=== PATIENT | female | born 1980 | race Caucasian/White ===

== ENCOUNTER 2020-05-09 04:59 | Inpatient (IN) | payer BC ==
[~2020-05-09] VITALS: Ht 167.6 cm; Wt 106.8 kg
[2020-05-09] MEDS ORDERED: NEWBORN KIT ONE (05:06)
[2020-05-09] MEDS ORDERED: PREN1TAB62 PO (05:14)
[2020-05-09 05:15] VITALS: BP 134/73
[2020-05-09] MEDS ORDERED: SODIUM CITRATE/CITRIC ACID 30 ML UDC PO ONE (05:30)
[2020-05-09 05:57] LABS: BASOPHILS % (AUTO) 0 % (0-1); EOSINOPHILS % (AUTO) 1 % (1-7); LYMPHOCYTES % (AUTO) 23 % (22-44); MEAN CORPUSCULAR HGB CONC 32.8 g/dL (32.4-35.8); MEAN PLATELET VOLUME 9.6 fL (7.4-10.4); MONOCYTES % (AUTO) 8 % (2-9); NEUTROPHILS % (AUTO) 68 % (42-75); PLATELET COUNT 171 x10^3/uL (130-400); RED BLOOD COUNT 4.49 x10^6/uL (3.82-5.3); RED CELL DISTRIBUTION WIDTH 17.2 % (9.6-15.2)
[2020-05-09] MEDS ORDERED: METOCLOPRAMIDE 5 MG/ML, 2ML IV ONE (06:00)
[2020-05-09] MEDS ORDERED: LACTATED RINGERS 1,000 ML IVBOLUS ONE (06:00)
[2020-05-09] MEDS: LACTATED RINGERS 1,000 ML IV SCH ×6 (06:21→22:00)
[2020-05-09 06:22] LABS: MD SCAN
[2020-05-09] MEDS ORDERED: OXYTOCIN 30U/ 0.9% NaCL 500ML 500 ML ONE (06:22)
[2020-05-09] MEDS ORDERED: METOCLOPRAMIDE 5 MG/ML, 2ML ONE (06:22)
[2020-05-09] MEDS ORDERED: SODIUM CITRATE/CITRIC ACID 15 ML UDC ONE (06:22)
[2020-05-09] MEDS ORDERED: HYDROcodone/APAP 7.5-325MG/15ML UDC PO PRN (07:30)
[2020-05-09] MEDS ORDERED: METOCLOPRAMIDE 5 MG/ML, 2ML IVPush PRN (07:30)
[2020-05-09] MEDS ORDERED: MEPERIDINE/PF 25MG/0.5ML IVPush PRN (07:30)
[2020-05-09] MEDS ORDERED: FENTANYL PF 100 MCG/2ML IV PRN (07:30)
[2020-05-09] MEDS ORDERED: ACETAMINOPHEN 325 MG TABLET PO PRN ×2 (07:30→08:00)
[2020-05-09] MEDS ORDERED: EPHEDRINE 50 MG/ML, 1ML IVPush PRN (07:30)
[2020-05-09] MEDS ORDERED: ONDANSETRON 2MG/ML, 2ML IVPush PRN (07:30)
[2020-05-09] MEDS ORDERED: morphine SULFATE 10 MG/ML, 1ML IVPush PRN (07:30)
[2020-05-09] MEDS ORDERED: FENTANYL PF 100 MCG/2ML ONE (07:33)
[2020-05-09] MEDS ORDERED: EPHEDRINE 50 MG/ML, 1ML ONE ×2 (07:33→08:39)
[2020-05-09] MEDS ORDERED: EPINEPHRINE 1 MG/ML, 1ML ONE (07:33)
[2020-05-09] MEDS ORDERED: CEFAZOLIN 1,000 MG ONE (07:33)
[2020-05-09] MEDS ORDERED: OXYTOCIN 10 UNITS/ML, 1ML ONE (07:33)
[2020-05-09] MEDS ORDERED: morphine SULFATE 10 MG/ML, 1ML IM PRN (08:00)
[2020-05-09] MEDS ORDERED: CARBOPROST TROMETHAMINE 250 MCG/ML, 1ML IM PRN (08:00)
[2020-05-09] MEDS ORDERED: OXYcodone IR 5MG TABLET PO PRN (08:00)
[2020-05-09] MEDS ORDERED: DIPH,PERTUSS(ACELL),TET VAC/PF NC IM-VACC PRN (08:00)
[2020-05-09] MEDS ORDERED: ONDANSETRON 2MG/ML, 2ML IV PRN (08:00)
[2020-05-09] MEDS ORDERED: METHYLERGONOVINE 0.2 MG/ML IM PRN (08:00)
[2020-05-09] MEDS: OXYTOCIN 30U/ 0.9% NaCL 500ML 500 ML IV SCH ×2 (08:00→19:00)
[2020-05-09] MEDS ORDERED: MISOPROSTOL 200 MCG TABLET PR PRN (08:00)
[2020-05-09] MEDS ORDERED: OXYcodone/APAP 5/325MG TABLET PO PRN (08:00)
[2020-05-09] MEDS: KETOROLAC 30 MG/1 ML IV SCH ×3 (08:00→20:52)
[2020-05-09] MEDS: PRENATAL VIT/IRON/FA 1 EACH TABLET PO SCH (09:00)
[2020-05-09 11:30] VITALS: BP 125/75
[2020-05-09 15:00] VITALS: BP 122/72
[2020-05-09 16:19] LABS: BASOPHILS % (AUTO) 0 % (0-1); EOSINOPHILS % (AUTO) 0 % (1-7); LYMPHOCYTES % (AUTO) 13 % (22-44); MEAN CORPUSCULAR HEMOGLOBIN 27.8 pg (27.0-34.8); MEAN CORPUSCULAR HGB CONC 32.8 g/dL (32.4-35.8); MEAN PLATELET VOLUME 9.1 fL (7.4-10.4); MONOCYTES % (AUTO) 6 % (2-9); NEUTROPHILS % (AUTO) 81 % (42-75); PLATELET COUNT 155 x10^3/uL (130-400); RED BLOOD COUNT 4.22 x10^6/uL (3.82-5.3); RED CELL DISTRIBUTION WIDTH 17.1 % (9.6-15.2)
[2020-05-09 16:28] LABS: MD NO
[2020-05-09] MEDS: SIMETHICONE 80 MG CHEW TAB PO PRN (17:42)
[2020-05-09 20:12] VITALS: BP 129/80
[2020-05-09] MEDS: DOCUSATE 100 MG CAPSULE PO PRN (20:52)
[2020-05-10 00:25] VITALS: BP 133/78
[2020-05-10] MEDS: ACETAMINOPHEN 325 MG TABLET PO PRN ×4 (02:39→23:52)
[2020-05-10] MEDS: KETOROLAC 30 MG/1 ML IV SCH ×3 (02:39→15:18)
[2020-05-10] MEDS: SIMETHICONE 80 MG CHEW TAB PO PRN ×4 (02:40→21:24)
[2020-05-10] MEDS: OXYTOCIN 30U/ 0.9% NaCL 500ML 500 ML IV SCH ×2 (04:00→15:21)
[2020-05-10 04:45] VITALS: BP 137/88
[2020-05-10 07:03] VITALS: BP 127/81
[2020-05-10] MEDS: LACTATED RINGERS 1,000 ML IV SCH ×6 (07:03→18:58)
[2020-05-10] MEDS: PRENATAL VIT/IRON/FA 1 EACH TABLET PO SCH (08:39)
[2020-05-10] MEDS: DOCUSATE 100 MG CAPSULE PO PRN ×2 (08:39→19:36)
[2020-05-10] MEDS ORDERED: IBUPROFEN 600 MG TABLET ONE ×2 (15:17→21:23)
[2020-05-10] MEDS: IBUPROFEN 600 MG TABLET PO PRN ×2 (15:18→21:25)
[2020-05-10 19:38] VITALS: BP 124/80
[2020-05-11] MEDS ORDERED: IBUPROFEN 600 MG TABLET ONE (04:10)
[2020-05-11] MEDS: ACETAMINOPHEN 325 MG TABLET PO PRN ×2 (04:15→09:29)
[2020-05-11] MEDS: IBUPROFEN 600 MG TABLET PO PRN ×2 (04:15→10:44)
[2020-05-11] MEDS: SIMETHICONE 80 MG CHEW TAB PO PRN ×2 (04:15→10:44)
[2020-05-11] MEDS: LACTATED RINGERS 1,000 ML IV SCH ×3 (05:05→08:00)
[2020-05-11 07:15] VITALS: BP 137/90
[2020-05-11] MEDS: DOCUSATE 100 MG CAPSULE PO PRN (07:49)
[2020-05-11] MEDS: PRENATAL VIT/IRON/FA 1 EACH TABLET PO SCH (07:49)
[2020-05-11] MEDS ORDERED: OXYC-302 PO (08:13)
[2020-05-11] MEDS ORDERED: IBUP-1222 PO (08:17)
[2020-05-11] MEDS: OXYTOCIN 30U/ 0.9% NaCL 500ML 500 ML IV SCH ×2 (10:00)
== END 2020-05-11 12:50 | disposition home or self-care (01) | DRG 784 ==
LOC: LDIP 04:59 → 2NW 10:45
PROVIDERS: ADMIT Obstetrics & Gynecology Maternal & Fetal Medicine; ATTEND Obstetrics & Gynecology Maternal & Fetal Medicine
PROC: 10D00Z1 Extraction of Products of Conception, Low, Open Approach (ICD-10-PCS; principal; 2020-05-09)
PROC: 0UB70ZZ Excision of Bilateral Fallopian Tubes, Open Approach (ICD-10-PCS; 2020-05-09)
DX: O32.1XX0 Maternal care for breech presentation, not applicable or unspecified (principal); O99.354 Diseases of the nervous system complicating childbirth; O99.824 Streptococcus B carrier state complicating childbirth; O32.2XX0 Maternal care for transverse and oblique lie, not applicable or unspecified; O34.211 Maternal care for low transverse scar from previous cesarean delivery; G43.909 Migraine, unspecified, not intractable, without status migrainosus; Z20.828 Contact with and (suspected) exposure to other viral communicable diseases; Z30.2 Encounter for sterilization; Z37.0 Single live birth; Z3A.38 38 weeks gestation of pregnancy
CPT/HCPCS: 36415; 85025; 86592; 86850; 86900; 87635; 88302; G0378; J0171; J0690; J1885; J3010; J2590; J2765; J7120